=== PATIENT | female | born 1955 | race Caucasian/White ===

== ENCOUNTER 2023-09-14 12:03 | Emergency (ER) | payer OTHER ==
[2023-09-14 12:21] VITALS: BMI 29.2
[2023-09-14 14:43] LABS: BASO % 0.5 % (0-2.0); EOS % 1.2 % (0-4.5); HEMATOCRIT 39.2 % (32.4-45.2); HEMOGLOBIN 13.1 GM/dL (10.7-15.3); LYMPH % 21.8 % (8-40); MCH 31.3 pg (25.7-33.7); MCHC 33.3 g/dl (32.0-36.0); MEAN CELL VOLUME 93.8 fl (80-96); MEAN PLT VOLUME 7.7 fl (7.5-11.1); MONO % 5.7 % (3.8-10.2); NEUT % 70.8 % (42.8-82.8); PLATELET COUNT 347 10^3/uL (134-434); RBC 4.18 M/mm3 (3.60-5.2); RDW 14.6 % (11.6-15.6); WHITE BLOOD COUNT 13.6 K/mm3 (4.0-10.0)
[2023-09-14 14:49] LABS: INR 1.07 (0.83-1.09); PROTHROMBIN TIME (PATIENT) 12.3 SEC (9.7-13.0)
[2023-09-14 14:51] LABS: ACTIVATED PTT 31.3 SECONDS (25.2-36.5)
[2023-09-14 15:05] LABS: POTASSIUM 4.6 mmol/L (3.5-5.1)
[2023-09-14 15:07] LABS: ALBUMIN 3.6 g/dl (3.4-5.0); BLOOD UREA NITROGEN 15.6 mg/dL (7-18); CALCIUM 9.5 mg/dL (8.5-10.1)
[2023-09-14 15:12] LABS: BILIRUBIN,TOTAL 0.4 mg/dL (0.2-1); TOT PROT 7.8 g/dl (6.4-8.2)
[2023-09-14 15:13] LABS: CREATININE 0.8 mg/dL (0.55-1.3)
[2023-09-14] MEDS ORDERED: ACETAMINOPHEN INJECTION 100 ML IVPB ONE (16:54)
[2023-09-14] MEDS ORDERED: LIDOCAINE 4% PATCH TP ONE (16:54)
[2023-09-14] MEDS: LIDOCAINE 4% PATCH TP ONE (16:58)
[2023-09-14] MEDS: ACETAMINOPHEN 1000 MG/100 ML BAG IVPB ONE (16:58)
[2023-09-14] MEDS ORDERED: IBUPROFEN 400 MG TABLET (FP) PO ONE (17:44)
[2023-09-14] MEDS: IBUPROFEN 400 MG TABLET (FP) PO ONE (17:45)
[2023-09-14 17:46] VITALS: BP 167/68; PULSE 62; RESP 18; TEMP 98.5
[2023-09-14] MEDS ORDERED: LIDOCAINE PATCH REMOVAL MC SCH (22:00)
== END 2023-09-14 17:46 | disposition home or self-care (01) ==
LOC: JER 12:03
PROC: 3E033NZ Introduction of Analgesics, Hypnotics, Sedatives into Peripheral Vein, Percutaneous Approach (ICD-10-PCS; principal; 2023-09-14)
DX: R07.81 Pleurodynia (principal); R60.0 Localized edema
CPT/HCPCS: 36415; 71275-TC; 80053; 84484; 85025; 85610; 85730; 86850; 86900; 86901; 93005; 93010; 93970-TC; 99285-25; J0131; Q9967